=== PATIENT | female | born 1930 | race Caucasian/White ===

== ENCOUNTER 2017-05-10 19:14 | Observation (INO) ==
--- NOTE | 2017-05-10 19:29 | Emergency Department Note ---
Disposition Clinical Impression: Intractable pain, Left hip pain Disposition: Transfer Critical Access Hosp Condition: Fair Time of Disposition: 23:10 Extremity Problem HPI - General Chief complaint: ED Extremity Problem,Nontraumatic Stated complaint: LEFT HIP PAIN NO INJURY Time Seen by Provider: 05/10/17 19:23 Source: patient Mode of arrival: EMS Limitations: no limitations Nursing Notes Reviewed: Yes Vital Signs Reviewed: Yes - History of Present Illness HPI Narrative: Patient reports that she is been having intermittent left hip pain for the past couple weeks and possibly longer. Although she seems unsure she thinks that she has had some problem with that hip off and on for a while. Over the last few days it has become much more painful and this morning she was unable to actually ambulate on that hip. She denies any falls or trauma to that hip. She states that she had a B assisted by her granddaughter to walk down the stairs and is spent all day sitting in a chair because she has been unable to ambulate. She has a history of chronic low back pain but she does not feel that that pain is the cause of the pain in her left hip. She has no numbness tingling or weakness in her left leg. She has no fever or chills. Her only other health problem is diabetes and she has not had any exacerbation of her blood sugar. Pain Scale: 10 Quality: stabbing, sharp Radiation: none Improves with: rest Worsens with: other (any movement) Associated symptoms: Reports: denies other symptoms - Related Data Home Medications Medication Instructions Recorded Confirmed Aspirin 81 mg PO DAILY 07/03/15 05/10/17 Cholecalciferol (Vitamin D3) 1,000 unit PO DAILY 07/03/15 05/10/17 [Vitamin D3] Clopidogrel [Plavix] 75 mg PO DAILY 07/03/15 05/10/17 Insulin Glargine,Hum.rec.anlog 50 unit SQ DAILY 07/03/15 05/10/17 [Lantus Solostar] Iron 65 mg PO DAILY 07/03/15 05/10/17 Levothyroxine [Synthroid] 50 mcg PO DAILY 07/03/15 05/10/17 Multivitamin [Multivitamins] 1 each PO DAILY 07/03/15 05/10/17 Rosuvastatin [Crestor] 40 mg PO DAILY 07/03/15 05/10/17 Vitamin E Acetate [Vitamin E] 1,000 unit PO DAILY 07/03/15 05/10/17 Losartan Potassium [Cozaar] 50 mg PO DAILY 05/10/17 05/10/17 Pioglitazone HCl [Actos] 30 mg PO DAILY 05/10/17 05/10/17 Previous Rx's Medication Instructions Recorded Escitalopram [Lexapro] 10 mg PO DAILY #30 tablet 07/06/15 Magnesium Oxide [Mag-Ox] 400 mg PO BID #60 tablet 07/06/15 Pantoprazole Sodium 40 mg PO DAILY #30 tablet. 07/06/15 Sucralfate [Carafate] 1 gm PO QIDAC #60 tablet 07/06/15 Allergies Allergy/AdvReac Type Severity Reaction Status Date / Time No Known Allergies Allergy Verified 05/10/17 19:15 All systems ED: reviewed and negative except as stated. Review of Systems: As Per HPI Constitutional: Reports: as per HPI. Denies: fever, chills Musculoskeletal: Reports: back pain (chronic low back - no acute change lately) , other (acute pain in L hip today but pain off and on for awhile) Neurological: Denies: weakness, numbness, paresthesias Past Medical History - Past Medical History Medical history: Reports: arthritis, coronary artery disease, diabetes, GERD, hyperlipidemia, hypertension, myocardial infarction, osteoporosis, peripheral artery disease, renal disease, thyroid disease, other Surgical history: Reports: appendectomy, hysterectomy, other Psychiatric history: Reports: depression - Social History Smoking Status: Never smoker Smokeless Tobacco Status: No Alcohol use: Reports: none Drug use: Reports: none Physical Exam - General Limitations: no limitations - Head Head exam: atraumatic - Eye Eye exam: Present: PERRL - Neck Neck exam: Present: normal inspection, full ROM - Chest Chest inspection: Present: symmetric chest wall rise - Respiratory Respiratory exam: Present: normal lung sounds bilaterally. Absent: respiratory distress, accessory muscle use - Cardiovascular Cardiovascular exam: Present: regular rate, normal rhythm, normal heart sounds. Absent: systolic murmur - Abdominal Exam Abdominal exam: Present: soft, Non-Tender. Absent: tenderness - Expanded Lower Extremity Exam Hip/Pelvis exam: Present: normal inspection, tenderness, pelvis stable, other ( exquisitely sensitive to any movement including flexion or ext rotation) Upper leg exam: Present: normal inspection Knee exam: Present: normal inspection Foot/toe exam: Present: normal inspection Neurovascular/Tendon exam: Present: normal capillary refill. Absent: motor deficit, sensory deficit - Back Exam Back exam: Present: normal inspection, tenderness (mild paraspinous with mild spasm - no spinous tend) Course Vital Signs Temperature 97.9 F 05/10/17 19:19 Pulse Rate 70 05/10/17 19:19 Respiratory Rate 20 05/10/17 19:19 Blood Pressure 176/89 05/10/17 19:19 O2 Sat by Pulse Oximetry 97 05/10/17 19:19 Temperature 98.6 F 05/11/17 03:22 Pulse Rate 72 05/11/17 03:22 Respiratory Rate 18 05/11/17 03:22 Blood Pressure 174/62 05/11/17 03:22 O2 Sat by Pulse Oximetry 97 05/11/17 03:22 Oxygen Delivery Oxygen Delivery Room Air Extremity Problem, Nontraumati - Lab Data Result diagrams: 05/10/17 22:24 05/10/17 22:24 Lab Results 05/10/17 05/10/17 05/10/17 Range/Units 22:24 22:24 22:24 WBC 8.5 (4.3-11.1) K/mcL RBC 3.52 L (3.82-4.97) M/mcL Hgb 10.3 L (11.5-15.4) g/dL Hct 31.6 L (35.3-44.9) % MCV 89.8 (83.0-100.0) fL MCH 29.3 (28.0-33.3) pg MCHC 32.6 (31.6-35.5) g/dL RDW 13.0 (11.5-14.5) % Plt Count 187 (140-400) K/mcL MPV 9.8 (9.4-12.4) fL Immature Gran % 0.2 (0-4) % Seg Neutrophils % 63.9 % Lymphocytes % 21.9 % Monocytes % 11.7 % Eosinophils % 1.9 % Basophils % 0.4 % Neutrophils # 5.5 (1.6-8.9) K/mcL Lymphocytes # 1.9 (0.6-4.6) K/mcL Monocytes # 1.0 (0.0-1.3) K/mcL Eosinophils # 0.2 (0.0-0.6) K/mcL Basophils # 0.0 (0.0-0.2) K/mcL ESR 29 (0-30) mm/hr Sodium 138 (136-145) mEq/L Potassium 4.3 (3.5-4.5) mEq/L Chloride 105 (98-109) mEq/L Carbon Dioxide 26 (19-29) mEq/L BUN 26 H (7-20) mg/dL Creatinine 1.39 H (0.57-1.11) mg/dL Est GFR ( Amer) 43 L (> 60) Est GFR (Non-Af Amer) 36 L (> 60) BUN/Creatinine Ratio 19 (6-26) Glucose 91 (70-99) mg/dL Calculated Osmolality 290 (280-300) Uric Acid (2.6-6.0) mg/dL Calcium 8.9 (8.6-10.8) mg/dL 05/10/17 Range/Units 22:24 WBC (4.3-11.1) K/mcL RBC (3.82-4.97) M/mcL Hgb (11.5-15.4) g/dL Hct (35.3-44.9) % MCV (83.0-100.0) fL MCH (28.0-33.3) pg MCHC (31.6-35.5) g/dL RDW (11.5-14.5) % Plt Count (140-400) K/mcL MPV (9.4-12.4) fL Immature Gran % (0-4) % Seg Neutrophils % % Lymphocytes % % Monocytes % % Eosinophils % % Basophils % % Neutrophils # (1.6-8.9) K/mcL Lymphocytes # (0.6-4.6) K/mcL Monocytes # (0.0-1.3) K/mcL Eosinophils # (0.0-0.6) K/mcL Basophils # (0.0-0.2) K/mcL ESR (0-30) mm/hr Sodium (136-145) mEq/L Potassium (3.5-4.5) mEq/L Chloride (98-109) mEq/L Carbon Dioxide (19-29) mEq/L BUN (7-20) mg/dL Creatinine (0.57-1.11) mg/dL Est GFR ( Amer) (> 60) Est GFR (Non-Af Amer) (> 60) BUN/Creatinine Ratio (6-26) Glucose (70-99) mg/dL Calculated Osmolality (280-300) Uric Acid 5.8 (2.6-6.0) mg/dL Calcium (8.6-10.8) mg/dL
[2017-05-10] MEDS ORDERED: *HR* HYDROcodone/Acet 5/325 mg TABLET PO ONE ×2 (19:30→20:45)
[2017-05-10 22:31] LABS: Basophils % 0.4 %; Eosinophils # 0.2 K/mcL (0.0-0.6); Eosinophils % 1.9 %; Hematocrit 31.6 % (35.3-44.9); Hemoglobin 10.3 g/dL (11.5-15.4); Immature Granulocytes % 0.2 % (0-4); Lymphocytes # 1.9 K/mcL (0.6-4.6); Lymphocytes % 21.9 %; Mean Corpuscular HGB Conc 32.6 g/dL (31.6-35.5); Mean Corpuscular Hemoglobin 29.3 pg (28.0-33.3); Mean Corpuscular Volume 89.8 fL (83.0-100.0); Mean Platelet Volume 9.8 fL (9.4-12.4); Monocytes % 11.7 %; Neutrophils # 5.5 K/mcL (1.6-8.9); Platelet Count 187 K/mcL (140-400); Red Blood Count 3.52 M/mcL (3.82-4.97); Segmented Neutrophils % 63.9 %
[2017-05-10 22:46] LABS: Calcium 8.9 mg/dL (8.6-10.8); Potassium 4.3 mEq/L (3.5-4.5)
[2017-05-11] MEDS ORDERED: *HR* HYDROcodone/Acet 5/325 mg TABLET PO ONE (00:15)
[2017-05-11] MEDS: Levothyroxine 25 MCG TABLET PO SCH (06:54)
[2017-05-11] MEDS: *HR* Pioglitazone 15 MG TABLET PO SCH ×2 (07:54→11:55)
[2017-05-11] MEDS: Cholecalciferol (D-3) 1,000 UNIT TABLET PO SCH (08:02)
[2017-05-11] MEDS: Multivit/Ca/Min/Fe/FA 1 TAB TABLET PO SCH (08:03)
[2017-05-11] MEDS: Aspirin 81 MG TAB.CHEW PO SCH (08:04)
[2017-05-11] MEDS: Sucralfate 1 GM TABLET PO SCH ×2 (08:04→11:55)
[2017-05-11] MEDS: Magnesium Oxide 400 MG TABLET PO SCH ×2 (08:05→20:15)
[2017-05-11] MEDS ORDERED: *HR* Pioglitazone 15 MG TABLET PO SCH (09:00)
[2017-05-11] MEDS: Insulin DETEMIR 100 UNIT/ML X5UNITS SQ SCH (11:56)
--- NOTE | 2017-05-11 14:10 | Internal Med History&Physical ---
Date of Encounter: 05/11/17 Time of Encounter: 13:40 Assessment and Plan (1) Left hip pain Current visit: Yes Status: Acute Left hip x-ray in emergency room showed no fracture. I will order CT scan to further evaluate. (2) Diabetes mellitus Current visit: No Status: Chronic Hemoglobin A1c was 7.4% on 12/19/2016. Continue Actos and Lantus/Levemir and do Accu-Cheks with SSI. Qualifiers: Diabetes mellitus type: type 2 Diabetes mellitus complication status: with unspecified complications Qualified Code(s): E11.8 - Type 2 diabetes mellitus with unspecified complications; Z79.4 - intermodal truck driver (current) use of insulin; Z79.4 - intermodal truck driver (current) use of insulin; Z79.4 - intermodal truck driver (current) use of insulin; Z79.4 - intermodal truck driver (current) use of insulin (3) Hypothyroidism (acquired) Current visit: No Status: Chronic TSH was normal at 2.70 on 06/21/2016. Continue present dose Synthroid. (4) CKD (chronic kidney disease) stage 3, GFR 30-59 ml/min Current visit: Yes Status: Acute Will monitor renal indices as needed. Internal Medicine - H&P: HPI Chief complaint: Hip pain Admitted From: Emergency Dept Plans for Post Hospital Care: Home History of present illness: Ms. Patel is a 87 year old female who states she noticed significant pain in her left hip and she tried to get out of bed the morning of May 10. It had not been there the previous day and she been able to arise from a seated position using her lift chair and ambulate without assistance or device. She was unable to walk to the bathroom or down her steps without family assistance so came to emergency room. She did not take any analgesics at home. She was evaluated and admitted to [facility] until further disposition could be made. She denies any injury to the hip. She denies previous similar pain. Her musk skeletal history is significant for osteoarthritis seen on hip x-rays in the emergency room, more severe on left than the right. She denies gout or known osteoporosis. Past Med Surg Social Fam HX - Past Medical History Medical history: arthritis, coronary artery disease, diabetes, GERD, hyperlipidemia, hypertension, myocardial infarction, osteoporosis, peripheral artery disease, renal disease, thyroid disease, other Psychiatric history: depression - Past Surgical History Surgical History: appendectomy, hysterectomy, other - Social History Smoking Status: Never smoker Smokeless Tobacco Status: No Alcohol use: none Drug use: none - Family History Mother Living Status: Father Living Status: Sister Living Status: Still Living Hx Family Cardiac Disorders: Yes (open heart surgery) Internal Medicine - H&P: Meds Aspirin 81 mg PO DAILY 07/03/15 [History] Cholecalciferol (Vitamin D3) [Vitamin D3] 1,000 unit PO DAILY 07/03/15 [History] Clopidogrel [Plavix] 75 mg PO DAILY 07/03/15 [History] Insulin Glargine,Hum.rec.anlog [Lantus Solostar] 50 unit SQ DAILY 07/03/15 [ History] Iron 65 mg PO DAILY 07/03/15 [History] Levothyroxine [Synthroid] 50 mcg PO DAILY 07/03/15 [History] Multivitamin [Multivitamins] 1 each PO DAILY 07/03/15 [History] Rosuvastatin [Crestor] 40 mg PO DAILY 07/03/15 [History] Vitamin E Acetate [Vitamin E] 1,000 unit PO DAILY 07/03/15 [History] Escitalopram [Lexapro] 10 mg PO DAILY #30 tablet 07/06/15 [Rx] Magnesium Oxide [Mag-Ox] 400 mg PO BID #60 tablet 07/06/15 [Rx] Pantoprazole Sodium 40 mg PO DAILY #30 tablet. 07/06/15 [Rx] Sucralfate [Carafate] 1 gm PO QIDAC #60 tablet 07/06/15 [Rx] Losartan Potassium [Cozaar] 50 mg PO DAILY 05/10/17 [History] Pioglitazone HCl [Actos] 30 mg PO DAILY 05/10/17 [History] 3 Allergy/AdvReac Type Severity Reaction Status Date / Time No Known Allergies Allergy Verified 05/10/17 19:15 All Systems PM: A 10-system review of systems was performed and is negative for pertinent findings except as documented above in the HPI. Review of systems: Review of systems from her June 2015 [facility] hospitalization were reviewed and revised as below Gen.: Her weight has increased from 74.41 kg on 07/10/2015 to 81.647 kg on admission now Cardiovascular: She has history of hypertension. She has known ASHD status post PTCA with [facility] She denies DC heart failure DVT or pulmonary embolus. She has not had further cardiac workup since the stents were placed. Respiratory: She is a lifelong nonsmoker and has no known chronic lung disease GI: She has GERD. She has diverticulosis . She had mild prepyloric gastritis on EGD June 2015. She denies disorders of her liver or exocrine pancreas. : She has CKD stage III denies other kidney or bladder disorders. Neurologic: She denies large distribution strokes or seizures. Her daughter states her mother's memory has gradually declined over the past year. Endocrine: She was diagnosed with DM 2 approximately 2006. She has hyperlipidemia and hypothyroidism Hematology/oncology: She has anemia but no known internal malignancies or other blood disorders Psychiatric: She has depression but no significant anxiety or other mental health issues Musk skeletal: As per history of present illness - Constitutional Vitals: Temp Pulse Resp BP Pulse Ox 98.2 F 70 18 154/71 98 05/11/17 11:00 05/11/17 12:16 05/11/17 12:16 05/11/17 12:16 05/11/17 12:16 Exam: Gen.: She is a well-developed well-nourished female lying in bed who appears in no severe distress at present time HEENT: Head is atraumatic and normocephalic. Eyes: EOMI. There is no scleral icterus. Mouth: Mucosa is moist. Neck: Supple and nontender. There is no thyromegaly or adenopathy noted. Heart: Regular without murmurs gallops or ectopics Lungs: No wheezes or crackles are heard. Abdomen: Soft and nontender. No masses or guarding noted. Extremities: There is no cyanosis edema or clubbing noted. Dorsalis pedis and posttibial pulses are trace to 1+ palpable bilaterally. She has mild-to- moderate pain over deep palpation over the left trochanteric bursa. She has significant hip pain on any movement of the left leg on attempted hip flexion or internal/external rotation. Neurologic: Mental status: She is talkative and a fair to good historian. Cranial nerves: Smile is symmetric. Forehead wrinkles bilaterally. Tongue protrudes midline. EOMI. Motor: There is no pronator drift. Cerebellar: Finger to nose is intact bilaterally. Skin: Warm and dry Internal Med - H&P Results - Labs CBC & Chem 7: 05/10/17 22:24 05/10/17 22:24
[2017-05-11] MEDS: *HR* OxyCODONE/APAP 5/325 TABLET PO PRN ×2 (15:42→20:16)
[2017-05-11 19:55] LABS: % Iron Saturation 13 % (15-50); Iron 47 mcg/dL (50-170); Transferrin 258 mg/dL (180-382)
[2017-05-11 20:17] LABS: Ferritin 103 ng/ml (5-204)
[2017-05-11 21:14] LABS: Folate 35.5 ng/mL (7.0-31.4)
[2017-05-12 07:09] LABS: Basophils % 0.5 %; Eosinophils # 0.2 K/mcL (0.0-0.6); Eosinophils % 3.7 %; Hematocrit 33.2 % (35.3-44.9); Hemoglobin 10.6 g/dL (11.5-15.4); Immature Granulocytes % 0.2 % (0-4); Lymphocytes # 1.4 K/mcL (0.6-4.6); Lymphocytes % 23.1 %; Mean Corpuscular HGB Conc 31.9 g/dL (31.6-35.5); Mean Corpuscular Hemoglobin 29.4 pg (28.0-33.3); Mean Platelet Volume 9.8 fL (9.4-12.4); Monocytes # 0.7 K/mcL (0.0-1.3); Monocytes % 11.8 %; Neutrophils # 3.7 K/mcL (1.6-8.9); Platelet Count 174 K/mcL (140-400); Red Blood Count 3.61 M/mcL (3.82-4.97); Red Cell Distribution Width 13.2 % (11.5-14.5); Segmented Neutrophils % 60.7 %
[2017-05-12 07:28] LABS: Bilirubin,Total 0.4 mg/dL (0.2-1.2); Calcium 8.9 mg/dL (8.6-10.8); Globulin 3.1 g/dL (2.4-3.5); Potassium 4.8 mEq/L (3.5-4.5); Total Protein 6.1 g/dL (6.0-8.3)
[2017-05-12] MEDS: Levothyroxine 25 MCG TABLET PO SCH (07:32)
[2017-05-12] MEDS: Cholecalciferol (D-3) 1,000 UNIT TABLET PO SCH (08:48)
[2017-05-12] MEDS: Magnesium Oxide 400 MG TABLET PO SCH (08:48)
[2017-05-12] MEDS: Aspirin 81 MG TAB.CHEW PO SCH (08:48)
[2017-05-12] MEDS: Multivit/Ca/Min/Fe/FA 1 TAB TABLET PO SCH (08:49)
--- NOTE | 2017-05-12 10:00 | Internal Med Progress Note ---
Date of Encounter: 05/12/17 Time of Encounter: 09:50 - Assessment and plan (1) Left hip pain Current Visit: Yes Status: Acute Assessment and plan: May 12. No evidence of fracture on CT scan. PT evaluation has not been done. Will give scheduled and prn analgesics. Anticipate discharge home tomorrow. (2) Diabetes mellitus Current Visit: No Status: Chronic Assessment and plan: May 12. Hemoglobin A1c was 7.4% on 12/19/2016. Continue Actos and Lantus/ Levemir with Accu-Cheks and SSI Qualifiers: Diabetes mellitus type: type 2 Diabetes mellitus complication status: with unspecified complications Diabetes mellitus nursing home insulin use: with technician terminal and repeater use Qualified Code(s): E11.8 - Type 2 diabetes mellitus with unspecified complications; Z79.4 - MCC (current) use of insulin; Z79.4 - MCC ( current) use of insulin; Z79.4 - MCC (current) use of insulin; Z79.4 - terminal press operator (current) use of insulin (3) Hypothyroidism (acquired) Current Visit: No Status: Chronic Assessment and plan: May 12. TSH was normal at 2.70 on 06/21/2016. Continue Synthroid (4) CKD (chronic kidney disease) stage 3, GFR 30-59 ml/min Current Visit: Yes Status: Acute Assessment and plan: May 12. Will monitor renal indices as needed. (5) Anemia Current Visit: Yes Status: Acute Assessment and plan: May 12. Anemia testing showed iron 47, transferrin saturation 13%, transferrin 258, ferritin 103, B12 905, and folate 35.5. Will give trial of ferrous sulfate with vitamin C. Suspect primarily due to chronic kidney disease. Qualifiers: Anemia type: unspecified type Qualified Code(s): D64.9 - Anemia, unspecified - Subjective Interval history: May 12. She has no new complaints feels her pain has slightly lessened. She states today she did have a "little fall" in her bedroom earlier the day of admission. - Constitutional Vitals: Temp Pulse Resp BP Pulse Ox 98.1 F 84 16 153/61 98 05/12/17 06:47 05/12/17 06:47 05/12/17 06:47 05/12/17 06:47 05/12/17 06:47 Exam: She is resting comfortably in bed and appears in no acute distress. Her affect is bright and cheerful. She has less pain on flexion at the hip. Her left trochanteric bursa area is less tender. I reviewed her medications and lab results and CT report. Internal Medicine: Result - Labs CBC & Chem 7: 05/12/17 04:40 05/12/17 04:40 Labs: Short CBC 05/12/17 Range/Units 04:40 WBC 6.0 (4.3-11.1) K/mcL Hgb 10.6 L (11.5-15.4) g/dL Hct 33.2 L (35.3-44.9) % Plt Count 174 (140-400) K/mcL Neutrophils # 3.7 (1.6-8.9) K/mcL BMP 05/12/17 04:40 Sodium 143 Potassium 4.8 H Chloride 106 Carbon Dioxide 29 BUN 26 H Creatinine 1.51 H Glucose 45 L Calcium 8.9 Liver Function 05/12/17 Range/Units 04:40 Total Bilirubin 0.4 (0.2-1.2) mg/dL AST 41 H (5-34) Units/L ALT 23 (0-55) Units/L Alkaline Phosphatase 43 (38-126) Units/L Albumin 3.0 L (3.5-5.0) g/dL - Impressions Impressions Hip CT 05/11/17 14:08 IMPRESSION: 1. No acute osseous abnormality. 2. Severe left hip degenerative changes. D/ / Armando Devlin MD / Armando Devlin MD Interpreting Provider: Armando Devlin MD Consult Discharge Plan - Plan
[2017-05-12] MEDS ORDERED: Dextrose Gel 15 GM PO PRN ×2 (18:24)
[2017-05-12] MEDS ORDERED: D5% in Water 1,000 ML IVC PRN (18:24)
[2017-05-12] MEDS ORDERED: *HR* Dextrose 50 % in Water (Syg) 50 ML SYRINGE IVP PRN (18:24)
[2017-05-13] MEDS: Magnesium Oxide 400 MG TABLET PO SCH ×2 (04:04→08:00)
[2017-05-13] MEDS ORDERED: Ascorbic Acid 500 MG TABLET PO SCH (06:30)
[2017-05-13 06:36] VITALS: BP 168/73
[2017-05-13] MEDS: *HR* Pioglitazone 15 MG TABLET PO SCH (07:59)
[2017-05-13] MEDS: Aspirin 81 MG TAB.CHEW PO SCH (07:59)
[2017-05-13] MEDS: Levothyroxine 25 MCG TABLET PO SCH (07:59)
[2017-05-13] MEDS: Cholecalciferol (D-3) 1,000 UNIT TABLET PO SCH (08:00)
[2017-05-13] MEDS: Insulin LISPRO 300 UNITS/3 ML VIAL SQ SCH ×2 (08:00→11:38)
[2017-05-13] MEDS: Multivit/Ca/Min/Fe/FA 1 TAB TABLET PO SCH (08:00)
[2017-05-13] MEDS: Insulin DETEMIR 100 UNIT/ML X5UNITS SQ SCH (08:08)
--- NOTE | 2017-05-13 12:29 | Discharge Summary ---
Date of Encounter: 05/13/17 Time of Encounter: 12:15 - Discharge Diagnosis (1) Left hip pain Priority: Primary Status: Acute (2) Diabetes mellitus Priority: Secondary Status: Chronic Qualifiers: Diabetes mellitus type: type 2 Diabetes mellitus complication status: with unspecified complications Diabetes mellitus snf insulin use: with terminal manager use Qualified Code(s): E11.8 - Type 2 diabetes mellitus with unspecified complications; Z79.4 - senior care (current) use of insulin; Z79.4 - intermediate project manager ( current) use of insulin; Z79.4 - senior care (current) use of insulin; Z79.4 - intermediate project manager (current) use of insulin (3) Hypothyroidism (acquired) Priority: Secondary Status: Chronic (4) CKD (chronic kidney disease) stage 3, GFR 30-59 ml/min Priority: Secondary Status: Chronic (5) Anemia Priority: Secondary Status: Acute Qualifiers: Anemia type: unspecified type Qualified Code(s): D64.9 - Anemia, unspecified - Discharge Medications Prescriptions: OxyCODONE/APAP 5/325 [Percocet 5/325 MG] 1 each PO Q4HR PRN #12 tablet PRN Reason: Pain Ascorbic Acid [Vitamin C] 500 mg PO DAILY #30 tablet Home Medications: Aspirin 81 mg PO DAILY 07/03/15 [History] Cholecalciferol (Vitamin D3) [Vitamin D3] 1,000 unit PO DAILY 07/03/15 [History] Clopidogrel [Plavix] 75 mg PO DAILY 07/03/15 [History] Levothyroxine [Synthroid] 50 mcg PO DAILY 07/03/15 [History] Multivitamin [Multivitamins] 1 each PO DAILY 07/03/15 [History] Rosuvastatin [Crestor] 40 mg PO DAILY 07/03/15 [History] Vitamin E Acetate [Vitamin E] 1,000 unit PO DAILY 07/03/15 [History] Escitalopram [Lexapro] 10 mg PO DAILY #30 tablet 07/06/15 [Rx] Magnesium Oxide [Mag-Ox] 400 mg PO BID #60 tablet 07/06/15 [Rx] Pantoprazole Sodium 40 mg PO DAILY #30 tablet. 07/06/15 [Rx] Losartan Potassium [Cozaar] 50 mg PO DAILY 05/10/17 [History] Pioglitazone HCl [Actos] 30 mg PO DAILY 05/10/17 [History] Acetaminophen [Tylenol] 500 mg PO Q4HWA tablet 05/13/17 [Rx] Ascorbic Acid [Vitamin C] 500 mg PO DAILY #30 tablet 05/13/17 [Rx] Insulin Glargine,Hum.rec.anlog [Lantus Solostar] 40 unit SQ DAILY #0 05/13/17 [ Rx] Iron 65 mg PO DAILY #0 05/13/17 [Rx] OxyCODONE/APAP 5/325 [Percocet 5/325 MG] 1 each PO Q4HR PRN #12 tablet 05/13/17 [Rx] Allergies/Adverse Reactions: 3 Allergy/AdvReac Type Severity Reaction Status Date / Time No Known Allergies Allergy Verified 05/10/17 19:15 Procedures/tests Complete & Pending: Procedures Performed prior 72 hours Category Date Time Status CT hip LT wo con [CT] Routine Cat Scan 05/11/17 14:08 Completed Date of admission: 05/10/17 23:37 Primary care physician: Gerardo Devlin MD Consults: 05/13/17 07:40 Consult to Painting And Coating Worker [CONS] Routine Reason for SW Consult: discharge planning, possible home health - Patient Status Disposition: Home Health Service Condition: Fair Functional capacity at discharge: uses cane/walker Overall status at discharge: patient is progressing back to baseline - Discharge Instructions Follow Up With: Gerardo Devlin MD [Primary Care Provider] - 1 week Forms: ED Satisfaction Letter - Diet and Activity Activity: as per physical therapy, resume usual activities as tolerated Diet: advance to your usual diet Hospital course: Ms. Patel is a 87 year old female who states she noticed significant pain in her left hip and she tried to get out of bed the morning of May 10. It had not been there the previous day and she been able to arise from a seated position using her lift chair and ambulate without assistance or device. She was unable to walk to the bathroom or down her steps without family assistance so came to emergency room. She did not take any analgesics at home. She was evaluated and admitted to [facility] until further disposition could be made. Initial orders were written by the emergency room physician. I saw her on May 11 and performed the history and physical. Left hip CT was done to further evaluate her pain. There was no evidence of fracture seen. She was started on scheduled Tylenol and given prn Percocet. She had physical therapy and occupational therapy evaluations. On May 13 she felt improved and was able to ambulate on level as well as on steps without debilitating pain. She felt stable for discharge home. She will have home health services with PT OT and nursing services. No DME was needed. She will follow with her PCP Dr. Gerardo Devlin within 1 week. Her family reported she had hypoglycemia episodes at home. I will reduce her Lantus to 40 units daily and continue Actos as prescribed. Anemia testing showed iron 47, transferrin saturation 13%, and ferritin 103. B12 and Folate were slightly elevated at 905 and 35.5 respectively. I started her on ferrous sulfate with vitamin C. - Time Spent with Patient Total time spent providing and/or coordinating discharge services: - Constitutional Vitals: Temp Pulse Resp BP Pulse Ox 98.3 F 66 16 168/73 96 05/13/17 10:51 05/13/17 10:51 05/13/17 10:51 05/13/17 10:51 05/13/17 10:51
--- NOTE | 2017-05-13 12:39 | Physician Discharge Referral ---
Home Health/Hosp Referral Info Transfer to: Home Health Attending Provider: Richard Provider in Charge Post Discharge: PCP (Gerardo Devlin M.D.) - Diagnosis (1) Left hip pain Priority: Primary Status: Acute (2) Diabetes mellitus Priority: Secondary Status: Chronic (3) Hypothyroidism (acquired) Priority: Secondary Status: Chronic (4) CKD (chronic kidney disease) stage 3, GFR 30-59 ml/min Priority: Secondary Status: Chronic (5) Anemia Priority: Secondary Status: Acute - Respiratory Orders Smoking Cessation: Smoking cessation has been advised. For more information, call the [place] Tobacco Quit Line at 2-681-CZSO-NOW. - Diet/Nutrition Diet/Nutrition Orders: No Concentrated Sweets - Activity Activity Orders: Ambulate - Services Needed Following services are medically necessary services: Nursing, Home Health Aide, Physical Therapy, Occupational Therapy - Transfer Medications Prescriptions: OxyCODONE/APAP 5/325 [Percocet 5/325 MG] 1 each PO Q4HR PRN #12 tablet PRN Reason: Pain Ascorbic Acid [Vitamin C] 500 mg PO DAILY #30 tablet Home Medications: Aspirin 81 mg PO DAILY 07/03/15 [History] Cholecalciferol (Vitamin D3) [Vitamin D3] 1,000 unit PO DAILY 07/03/15 [History] Clopidogrel [Plavix] 75 mg PO DAILY 07/03/15 [History] Levothyroxine [Synthroid] 50 mcg PO DAILY 07/03/15 [History] Multivitamin [Multivitamins] 1 each PO DAILY 07/03/15 [History] Rosuvastatin [Crestor] 40 mg PO DAILY 07/03/15 [History] Vitamin E Acetate [Vitamin E] 1,000 unit PO DAILY 07/03/15 [History] Escitalopram [Lexapro] 10 mg PO DAILY #30 tablet 07/06/15 [Rx] Magnesium Oxide [Mag-Ox] 400 mg PO BID #60 tablet 07/06/15 [Rx] Pantoprazole Sodium 40 mg PO DAILY #30 tablet. 07/06/15 [Rx] Losartan Potassium [Cozaar] 50 mg PO DAILY 05/10/17 [History] Pioglitazone HCl [Actos] 30 mg PO DAILY 05/10/17 [History] Acetaminophen [Tylenol] 500 mg PO Q4HWA tablet 05/13/17 [Rx] Ascorbic Acid [Vitamin C] 500 mg PO DAILY #30 tablet 05/13/17 [Rx] Insulin Glargine,Hum.rec.anlog [Lantus Solostar] 40 unit SQ DAILY #0 05/13/17 [ Rx] Iron 65 mg PO DAILY #0 05/13/17 [Rx] OxyCODONE/APAP 5/325 [Percocet 5/325 MG] 1 each PO Q4HR PRN #12 tablet 05/13/17 [Rx] Allergies/Adverse Reactions: 3 Allergy/AdvReac Type Severity Reaction Status Date / Time No Known Allergies Allergy Verified 05/10/17 19:15 Certification: Further, I certify that my clinical findings support that this patient is homebound (i.e. 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
== END 2017-05-13 13:09 | disposition home health service (06) ==
LOC: INPPIK 19:14 → EMEROOPIK 19:14 → INPPIK 23:59
PROVIDERS: ADMIT Internal Medicine; ATTEND Internal Medicine